=== PATIENT | female | born 1940 | race Caucasian/White ===

== ENCOUNTER 2023-11-06 12:02 | Outpatient (RCR) | payer OTHER, SELFPAY | END 2023-11-06 23:59 | disposition home or self-care (01) | LOC: RPT 12:02 | PROVIDERS: ATTENDING PHYSICIAN Internal Medicine | DX: I97.2 Postmastectomy lymphedema syndrome (principal) | CPT/HCPCS: 29584; 97140; 97163; 97530; 97535 ==